=== PATIENT | male | born 1955 | race Caucasian/White ===

== ENCOUNTER 2020-07-21 09:53 | Emergency (ER) | payer SELFPAY ==
[~2020-07-21] VITALS: Ht 177.8 cm; Wt 89.4 kg
[2020-07-21] MEDS ORDERED: KETOROLAC 30 MG/1 ML IVPush ONE (11:00)
[2020-07-21] MEDS ORDERED: MORPHINE SULFATE 4 MG/ML, 1ML IVPush PRN (11:00)
[2020-07-21] MEDS ORDERED: SODIUM CHLORIDE FLUSH 10ML SYR IVF ONE (11:00)
--- NOTE | 2020-07-21 11:07 | NUR ---
to nathan via [email or web address]
[2020-07-21 11:46] LABS: BASOPHILS % (AUTO) 1 % (0-1); EOSINOPHILS % (AUTO) 1 % (1-7); LYMPHOCYTES % (AUTO) 27 % (22-44); MEAN CORPUSCULAR HEMOGLOBIN 28.3 pg (27.5-34.5); MEAN PLATELET VOLUME 10.3 fL (7.4-10.4); MONOCYTES % (AUTO) 6 % (2-9); NEUTROPHILS % (AUTO) 66 % (42-75); PLATELET COUNT 152 x10^3/uL (130-400); RED BLOOD COUNT 5.91 x10^6/uL (4.38-5.82); RED CELL DISTRIBUTION WIDTH 13.5 % (9.4-14.8)
[2020-07-21] MEDS ORDERED: MORPHINE SULFATE 4 MG/ML, 1ML ONE (11:47)
[2020-07-21] MEDS ORDERED: KETOROLAC 30 MG/1 ML ONE (11:48)
[2020-07-21 11:49] LABS: MD NO
[2020-07-21 11:50] LABS: HCT (SEDRATE) 48.9 % (39.2-51.8)
[2020-07-21 11:57] LABS: ALBUMIN 3.9 g/dL (3.4-5.0); ANION GAP 6 mmol/L (5-15); CALCIUM 8.6 mg/dL (8.5-10.1); CHLORIDE 106 mmol/L (98-107); CREATININE 1.05 mg/dL (0.7-1.3)
[2020-07-21 11:59] VITALS: BP 146/97
== END 2020-07-21 13:04 | disposition home or self-care (01) ==
LOC: ED 12:25
DX: M54.16 Radiculopathy, lumbar region (principal); F17.200 Nicotine dependence, unspecified, uncomplicated
CPT/HCPCS: 36415; 72110; 72148; 80048; 82040; 85025; 85651; 96374; 96375; 99285; J1885; J2270